=== PATIENT | female | born 1940 | race Caucasian/White ===

== ENCOUNTER 2017-01-09 13:27 | Emergency (ER) | payer MEDICARE, MEDICAID ==
[~2017-01-09] VITALS: Ht 159.4 cm; Wt 68.2 kg
[~2017-01-09 13:27] MED LIST: ASPI325T32 PO; CALC500T61 PO; MULT-36 PO; NITR50CA PO; OMEG1CAP5 PO; TROS20TA4 PO
[2017-01-09 13:44] VITALS: BP 153/69; PULSE 70; RESP 17; O2SAT 97
--- NOTE | 2017-01-09 14:16 | ED.REPORT ---
HPI-Headache Date of Service Jan 09, 2017 ED Provider: Brenda John MD Pt is a 76 year old female with a history of MS and HTN who presents to the ED complaining of non-radiating lancinating head pain onset 6 days ago. She denies any other symptoms. Pt reports that she was seen 4 days ago for similar symptoms at [facility] in [place], and was diagnosed with primary stabbing headache. She was prescribed Indomethacin and Ranitidine without relief. Per , the head pain episodes would occur every 3-4 minutes, lasting 10-15 seconds, but they have slowed down since the pt's arrival. She is not on medication for MS and she last saw a neurologist for her MS 34 years ago with plans to see one soon. They have an appointment with Dr. Esther Miller, neurologist. Nursing Notes Stated Complaint: HEADACHE Chief Complaint: Headache Nursing Notes Reviewed: Yes Allergies: Coded Allergies: Dust (Verified Allergy, Severe, Sneezing, 09/12/14) milk (Verified Allergy, Severe, Diarrhea, 09/12/14) Penicillins (Verified Allergy, Unknown, RASH,STAY AWAY FROM MEDS, 09/12/14) Scheduled Aspirin (Aspirin) 325 Mg Tablet 325 MG PO DAILY Calcium Carbonate (Calcium) 500 Mg Tablet 1 TAB PO DAILY Multivitamin (Daily Multiple Vitamin) 1 Each Tablet 1 EACH PO DAILY Nitrofurantoin Macrocrystal (Nitrofurantoin Macrocrystal) 50 Mg Capsule 50 MG PO BID Coulters-3 Fatty Acids/Fish Oil (Fish Oil 1,000 mg Capsule) 1 Each Capsule 1 EACH PO DAILY Trospium Chloride (Trospium Chloride) 20 Mg Tablet 20 MG PO BID ON EMPTY STOMACH Scheduled PRN Melatonin (Melatonin) 1 Mg Tablet 1 MG PO HS PRN PRN For Headache Prochlorperazine Maleate (Prochlorperazine) 10 Mg Tablet 10 MG PO Q6H PRN PRN Headache General Time Seen by MD: 14:13 Chief Complaint Other (Lancinating head pain) Hx Obtained From: Patient Arrived By: Walk-in Sudden in Onset?: No Onset Occurred: 6 days ago Symptom Duration: Intermittent Location: : Generalized Quality: Painful Severity: Current: Moderate Severity: Maximum: Moderate Recent Healthcare: Recent doctor visit, Recent hospitalization Similar Sx Previous: No Past Medical History Past Medical History Hx of breast cancer in 2010 Gout MS - diagnosed 193 Varicose veins Reports: Hypertension, Transient ischemic attack Past Surgical History Lumpectomy Hand 6x Reports: Appendectomy, Cholecystectomy, Hysterectomy, Tonsillectomy Smoking History Never Smoker Social History Alcohol Use: "Social" Drug Use: Denies drug use Other Social History: Ambulatory Status Independent Review of Systems Constitutional: Denies: Fever Neurologic: Reports: Headache Complete sys rev & neg: except as marked. Respiratory: Denies: Non-productive cough, Shortness of breath Physical Exam Initial Vital Signs Vital Signs (First) Date Time Temp Pulse Resp B/P Pulse Ox O2 Delivery O2 Flow Rate FiO2 01/09/17 13:44 36.5 70 17 153/69 97 Room Air Initial VS: Reviewed Interpretation & Diagnostics Interpretation & Diagnostics: MRI brain w/ and w/out contrast: IMPRESSION: 1. Increased T2 signal in the periventricular white matter may represent sequelae of the patient's known multiple sclerosis or chronic ischemic change. Findings at progressed since 2010. 2. Symmetric prominence of the ventricles is stable and likely represents ex vacuo dilatation caused by generalized cerebral and cerebellar atrophy. Dictated by: Edson Alonzo M.D. on 01/09/2017 at 16:58 Approved by: Edson Alonzo M.D. on 01/09/2017 at 17:04 Lab Results Interpretation Result Diagram: 01/09/17 1449 01/09/17 1449 Test 01/09/17 13:55 01/09/17 14:49 01/09/17 16:31 Hold Purple Top Tube Received (Received) Hold Blue Top Tube Received (Received) Hold Grassflat Top Tube Received (Received) Hold Patel Top Tube Received (Received) White Blood Count 3.3th/mm3 (3.8-10.1) Red Blood Count 3.99mil/mm3 (3.90-5.20) Hemoglobin 12.0g/dL (12.0-15.6) Hematocrit 36.4% (35.0-46.0) Mean Corpuscular Volume 91.2fL (81-100) Mean Corpuscular Hemoglobin 30.1pg (27.0-35.0) Mean Corpuscular Hemoglobin Concent 33.0% (32.0-37.0) Red Cell Distribution Width 13.9% (12.3-15.4) Platelet Count 179bil/L (150-400) Neutrophils (%) (Auto) 55.8% (40-74) Lymphocytes (%) (Auto) 32.9% (14-46) Monocytes (%) (Auto) 8.6% (4-12) Eosinophils (%) (Auto) 1.8% (0-5) Basophils (%) (Auto) 0.6% (0-3) Sodium Level 139mEq/L (134-144) Potassium Level 4.6mEq/L (3.5-5.2) Chloride Level 101mEq/L (97-108) Carbon Dioxide Level 24mmol/L (18-29) Blood Urea Nitrogen 32mg/dL (8-27) Creatinine 0.75mg/dL (0.57-1.00) Estimat Glomerular Filtration Rate 107mL/min (>59) Glucose Level 104mg/dL (60-99) Calcium Level 9.6mg/dL (8.5-10.1) Hold Urine Received (Received) Lab Results Interpretation: CBC normal CMP normal Re-Eval/Medical Decision Med Decision/Clinical Course This is a 76-year-old female initially greeted by Dr. Willams, however I personally interviewed and examined the patient. This is a patient reports many years of a history and diagnosis of MS, but has not required any medications and has not been followed by a neurologist. However the past week she has had atypical sharp stabbing headaches that are very brief in duration, then resolved and then reoccur. She was seen in urgent care [place] and had a noncontrast head CT was negative,, and was diagnosed with a particular syndrome-and treated with NSAIDs and ranitidine, but still having pain so came to the ED. She is working to establish with a local neurologist Esther Garvey, but her appointment is not until April. She has had no trauma, no fevers, no tearing, no clear neurologic symptoms beyond simple headache. The headache was particular severe today, but is now much better when I evaluate her. Clinically appears well, has normal cranial nerves, and no focal deficits. The patient's description of the headache is very atypical for more the concerning pathology. She started noncontrast head CT. The symptoms do not sound typical of a subarachnoid, meningitis or need for LP. With a history of MS, I contacted and discussed the case with neurology at [facility]-and they did recommend pursuing MRI imaging. This is negative for clear acute pathology, although some stigmata of prior MS was noted. Patient is reassured. Neurology also recommended considering melatonin for the stabbing-like headaches is there some information dictated my be helpful, unlikely be harmful. The patient feels okay at time of reevaluation and up-to-date. She is being discharged to continue indomethacin ranitidine, with the added melatonin, as well as some when necessary promethazine. Routine precautions reviewed. Patient's discharged in good condition. Source of Hx: Old records Re-Evaluation/Progress : Time of Eval: 18:45 Re-Evaluation/Progress Note: Pt rechecked by Dr. Alaniz. Informed pt of plan for treatment. Pt understands and agrees with plan for treatment. F/U instructions and RTER warnings given. All questions addressed. Differential Diagnosis: Positive: Headache, Negative: [employer] tumor, Carbon monoxide toxicity, Cerebrovascular accident, Dental infection, Encephalitis, Fever-induced, Headache, hypertensive, Headache , migraine, Headache, post LP, Headache, post-traumatic, Headache, tension, Hemorrhage, cerebellar, Hemorrhage, intracerebral, Hemorrhage, subarachnoid, Hemorrhage, subdural, Intracranial abscess, Meningitis, Post-traumatic/ concussion, Pseudotumor cerebri, TMJ syndrome, Temporal arteritis Counseled Regarding: Diagnosis, Lab results Discharge & Departure Shift Change Sign-Out Patient Care Transferred: Yes Discussed Complaint(s): Yes Laboratory Evaluation: Done, results pending Impression: Primary Impression: Headache Headache type: unspecified Headache chronicity pattern: unspecified pattern Intractability: not intractable Qualified Code: R51 - Headache Discharge Condition All VS Reviewed: Yes Condition: Stable Additional Instructions: 1. A dangerous cause of the headache was not identified. 2. Your MRI showed some mild scarring (probably from MS), but no acute process or complication. 3. Activities as tolerated. 4. You can try adding prochlorperazine 10mg up to every 6 hours as needed for headache (causes mild drowsiness, also helps with nausea) 5. Symptoms are expected to improve with time. 6. Follow up with your primary care provider. 7. I have talked with the neurologists at [facility] and they also indicate that you can try taking the [id number] melatonin at night as there are some reports that it can help stop these headaches as well. 8. I think it is OK for you to have a glass of wine in the evenings. Referrals: Freddy Ch MD (PCP) Care Transferred to: Dr. Alaniz Care Transferred at: 15:20 Scribe Attestation Portions of this note were transcribed by Yakelin Perez and Denilson Werner. I, Dr. John and Dr. Alaniz personally performed the history, physical exam and medical decision-making; I reviewed and confirmed the accuracy of the information in the transcribed note. Signed by: Yakelin Perez and Denilson Werner, Bob, 01/09/17 and 1845. copies to: Freddy Ch MD, Shawna L MD Jan 09, 2017 14:16 Yakelin Lovett Jan 09, 2017 14:24 Giuliano Alaniz MD Jan 09, 2017 15:50 DENILSON WERNER Jan 09, 2017 18:44
[2017-01-09 14:56] LABS: BASOPHILS % (AUTO) 0.6 % (0-3); EOSINOPHILS % (AUTO) 1.8 % (0-5); MONOCYTES % (AUTO) 8.6 % (4-12); Mean Corpuscular Hemoglobin 30.1 pg (27.0-35.0); Mean Corpuscular Volume 91.2 fL (81-100); NEUTROPHILS % (AUTO) 55.8 % (40-74); Platelet Count 179 bil/L (150-400)
[2017-01-09 16:19] VITALS: BP 147/64; PULSE 68; RESP 15; O2SAT 98
--- NOTE | 2017-01-09 17:06 | DRSVH ---
PROCEDURE: MRI BRAIN WITH AND WITHOUT CONTRAST ([id number]) INDICATIONS: Headaches,history of cancer and multiple sclerosis TECHNIQUE: Noncontrast axial T1 spin echo, axial T2 fast spin echo, sagittal and axial FLAIR, coronal T2 fast sp in echo, axial gradient echo, axial diffusion and ADC through the brain. After the administration of contrast, axial and coronal 3D VIBE or T1 spin echo with fat saturation through the brain. COMPARISON: [facility], MR, STROKE PROTOCOL (PN), 07/23/2010, 20:26. FINDINGS: Image quality: Excellent. CSF Spaces: Basal cisterns are patent. No extra-axial fluid collections. Ventricles are symmetrica lly enlarged most consistent with ex vacuo dilatation. Brain: No acute hemorrhage no masses, infarction, or midline shift. There is increased T2 signal in t he periventricular white matter progressed since 2010. No abnormal enhancement. Skull and face: Calvarial marrow is normal in signal. Orbits appear normal. Sinuses: Sinuses and mastoids appear clear. IMPRESSION: 1. Increased T2 signal in the periventricular white matter may represent sequelae of the patient's kn own multiple sclerosis or chronic ischemic change. Findings at progressed since 2010. 2. Symmetric prominence of the ventricles is stable and likely represents ex vacuo dilatation caused by generalized cerebral and cerebellar atrophy. Dictated by: Edson Alonzo M.D. on 01/09/2017 at 16:58 Approved by: Edson Alonzo M.D. on 01/09/2017 at 17:04
[2017-01-09] MEDS ORDERED: MELA1TAB9 PO (17:48)
[2017-01-09] MEDS ORDERED: PROC10TA PO (17:48)
[2017-01-09 18:04] VITALS: BP 146/77; PULSE 70; O2SAT 97
[2017-01-09 18:18] VITALS: BP 146/77; PULSE 70; RESP 15; O2SAT 97
== END 2017-01-09 18:19 | disposition home or self-care (01) ==
LOC: SED 13:27
DX: R51 Headache (principal); G35 Multiple sclerosis; I10 Essential (primary) hypertension; Z86.73 Personal history of transient ischemic attack (TIA), and cerebral infarction without residual deficits; Z79.82 Long term (current) use of aspirin; Z88.0 Allergy status to penicillin; Z91.011 Allergy to milk products; Z91.048 Other nonmedicinal substance allergy status
CPT/HCPCS: 36415; 70553; 80048; 85025; 99284; A9585; G0463; Q0164

== ENCOUNTER 2017-01-14 13:56 | Observation (INO) | payer MEDICARE, MEDICAID ==
[~2017-01-14] VITALS: Ht 157.5 cm; Wt 68.6 kg
[~2017-01-14 13:56] MED LIST changes: +MELA1TAB9 PO; +PROC10TA PO
[2017-01-14 14:01] VITALS: BP 123/48; PULSE 83; RESP 20; O2SAT 96
--- NOTE | 2017-01-14 14:47 | ED.REPORT ---
HPI-Extremity Problem Lower Date of Service Jan 14, 2017 ED Provider: Dr. Ced Jacob The patient is a 76 year old female w/ a hx of gout and HTN who presents to the ED c/o right knee pain onset today. Yesterday, she was completely pain free and able to walk to the bathroom and take out the garbage. Today, walking is extremely painful. She denies any fall, injury, or accident that could have caused symptoms. Her describes that even the weight of the blankets cause her extreme pain. She was seen at [facility] 3 days ago for headache. Nursing Notes Stated Complaint: SWOLLEN RIGHT KNEE,CAN'T WALK Chief Complaint: Extremity Trauma Nursing Notes Reviewed: Yes Allergies: Coded Allergies: Dust (Verified Allergy, Severe, Sneezing, 09/12/14) milk (Verified Allergy, Severe, Diarrhea, 09/12/14) Penicillins (Verified Allergy, Unknown, RASH,STAY AWAY FROM MEDS, 09/12/14) Scheduled Aspirin (Aspirin) 325 Mg Tablet 325 MG PO DAILY Calcium Carbonate (Calcium) 500 Mg Tablet 1 TAB PO DAILY Multivitamin (Daily Multiple Vitamin) 1 Each Tablet 1 EACH PO DAILY Nitrofurantoin Macrocrystal (Nitrofurantoin Macrocrystal) 50 Mg Capsule 50 MG PO BID Walker-3 Fatty Acids/Fish Oil (Fish Oil 1,000 mg Capsule) 1 Each Capsule 1 EACH PO DAILY Trospium Chloride (Trospium Chloride) 20 Mg Tablet 20 MG PO BID ON EMPTY STOMACH Scheduled PRN Melatonin (Melatonin) 1 Mg Tablet 1 MG PO HS PRN PRN For Headache Prochlorperazine Maleate (Prochlorperazine) 10 Mg Tablet 10 MG PO Q6H PRN PRN Headache General Time Seen by MD: 14:46 Chief Complaint Knee injury right Hx Obtained From: Patient Arrived By: Walk-in Onset Occurred: 1 - 4 hours ago Symptom Duration: Since onset Location: : Knee right Quality: Painful Severity: Current: Moderate Exacerbated by: Range of motion, Bending, Movement Recent Healthcare: Recent doctor visit Similar Sx Previous: Yes Past Medical History Past Medical History Hx of breast cancer in 2010 Gout MS - diagnosed 1930 Varicose veins Reports: Hypertension, Transient ischemic attack Past Surgical History Lumpectomy Hand 6x Reports: Appendectomy, Cholecystectomy, Hysterectomy, Tonsillectomy Smoking History Never Smoker Social History Alcohol Use: "Social" Drug Use: Denies drug use Other Social History: Ambulatory Status Independent Review of Systems Musculoskeletal: Reports: Joint pain (right knee), Joint swelling Neurologic: Reports: Problem walking, Denies: Change LOC, Confusion, Dizziness, Syncope Complete sys rev & neg: except as marked. Physical Exam Initial Vital Signs Vital Signs (First) Date Time Temp Pulse Resp B/P Pulse Ox O2 Delivery O2 Flow Rate FiO2 01/14/17 14:01 36.9 83 20 123/48 96 Room Air Initial VS: Reviewed Right Knee: Positive: Swelling present..., Tenderness present..., Warmth present Ankle / Foot: Atraumatic, Inspection NL, No deformity General/Constitutional: Awake, Alert, Cooperative Skin: Atraumatic, Color NL, No rash Neurologic: Oriented X3, Speech NL Head / Eyes: Atraumatic, Normocephalic, PERRL Neck: Atraumatic, Supple Back: Atraumatic, Inspection NL, Full range of motion Upper Extremity / MS: Atraumatic, Inspection NL, Full range of motion, No deformity Wrist / Hand: Atraumatic, Inspection NL, Full range of motion, No deformity Interpretation & Diagnostics Lab Results Interpretation Result Diagram: 01/14/17 1600 01/14/17 1600 Test 01/14/17 16:00 01/14/17 17:30 White Blood Count 3.8th/mm3 (3.8-10.1) Red Blood Count 4.08mil/mm3 (3.90-5.20) Hemoglobin 12.2g/dL (12.0-15.6) Hematocrit 36.9% (35.0-46.0) Mean Corpuscular Volume 90.4fL (81-100) Mean Corpuscular Hemoglobin 29.9pg (27.0-35.0) Mean Corpuscular Hemoglobin Concent 33.1% (32.0-37.0) Red Cell Distribution Width 14.3% (12.3-15.4) Platelet Count 170bil/L (150-400) Neutrophils (%) (Auto) 57.7% (40-74) Lymphocytes (%) (Auto) 29.8% (14-46) Monocytes (%) (Auto) 9.8% (4-12) Eosinophils (%) (Auto) 2.1% (0-5) Basophils (%) (Auto) 0.3% (0-3) Sodium Level 140mEq/L (134-144) Potassium Level 4.1mEq/L (3.5-5.2) Chloride Level 102mEq/L (97-108) Carbon Dioxide Level 23mmol/L (18-29) Blood Urea Nitrogen 27mg/dL (8-27) Creatinine 0.72mg/dL (0.57-1.00) Estimat Glomerular Filtration Rate 112mL/min (>59) Glucose Level 86mg/dL (60-99) Calcium Level 9.7mg/dL (8.5-10.1) Total Bilirubin 0.4mg/dL (0.0-1.2) Aspartate Amino Transf (AST/SGOT) 17U/L (0-50) Alanine Aminotransferase (ALT/SGPT) 12U/L (0-32) Alkaline Phosphatase 64U/L (25-165) Total Protein 7.3g/dL (6.4-8.4) Albumin 4.3g/dL (3.4-5.0) Hold Patel Top Tube Received (Received) Hold Urine Received (Received) X-Ray Interpretation Xray Interpretation: RIGHT KNEE X-RAY IMPRESSION: 1. 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 Elsewhere it is considered mild. 2. Chondrocalcinosis. 3. Question of intra-articular body 7 mm in size. Dictated by: Tung Parham M.D. on 01/14/2017 at 15:33 Approved by: Tung Parham M.D. on 01/14/2017 at 15:36 X-Ray Ordered: Knee right Interpretation / Wet Read by: Interpret - Radiologist Re-Eval/Medical Decision Med Decision/Clinical Course Patient cannot ambulate without severe pain. We will admit for observation. Believe the most likely diagnosis here is gouty arthritis. Consultation : Referral / Consult Name: Isreal Mejia MD Consulted With: Hospitalist Rubber Gasket Inspector Trimmer: Accepts admit Counseled Regarding: Diagnosis, Lab results, Need for admission Discharge & Departure Impression: Primary Impression: Knee pain Laterality: right Chronicity: acute Qualified Code: M25.561 - Pain in right knee Disposition: ADMITTED TO HOSPITAL (ERASED) Discharge Condition All VS Reviewed: Yes Condition: Stable Referrals: Freddy Ch MD (PCP) Scribe Attestation Portion of this note were transcribed by Tracie Weiner. I, Dr. Jacob, personally performed the history, physical exam, and medical decision-making: I reviewed and confirmed the accuracy for the information in the transcribed note. Signed by: cecilia Patel, 01/14/17 1600 copies to: Freddy Ch MD, Kirk H MD Jan 14, 2017 14:47 Tracie Weiner Jan 14, 2017 14:56
--- NOTE | 2017-01-14 15:37 | DRSVH ---
PROCEDURE: X-RAY RIGHT KNEE, THREE VIEWS ([id number]) INDICATIONS: knee pain TECHNIQUE: 3 views of the knee were acquired. COMPARISON: None. FINDINGS: Bones: No fractures or dislocations. There are marginal osteophytes and some spurring of the interc ondylar eminence. There is a calcification overlying the intercondylar eminence and femoral notch sug gesting an intra-articular body. Moderate osteoarthritic changes present in the medial patellofemoral joint space. Soft tissues: No joint effusion. Atherosclerotic calcifications are present in the superficial femor al artery and popliteal artery. Shadows of the soft tissues indicated varicose veins laterally latera l aspect of the distal thigh. IMPRESSION: 1. 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 Elsewhere it is c onsidered mild. 2. Chondrocalcinosis. 3. Question of intra-articular body 7 mm in size. Dictated by: Tung Parham M.D. on 01/14/2017 at 15:33 Approved by: Tung Parham M.D. on 01/14/2017 at 15:36
[2017-01-14 16:17] LABS: BASOPHILS % (AUTO) 0.3 % (0-3); EOSINOPHILS % (AUTO) 2.1 % (0-5); MONOCYTES % (AUTO) 9.8 % (4-12); Mean Corpuscular Hemoglobin 29.9 pg (27.0-35.0); Mean Corpuscular Volume 90.4 fL (81-100); NEUTROPHILS % (AUTO) 57.7 % (40-74); Platelet Count 170 bil/L (150-400)
[2017-01-14 16:33] VITALS: BP 138/84; PULSE 83; O2SAT 93
[2017-01-14] MEDS ORDERED: Ondansetron 2 mg/mL 2 mL Inj IVPUSH PRN ×2 (18:15→18:50)
[2017-01-14] MEDS ORDERED: Alum-Mag Hydrox-Simeth 30 mL Suspension PO PRN ×2 (18:15→18:50)
[2017-01-14] MEDS ORDERED: Polyethylene Glycol (PEG) 17 Gm Powder PO PRN (18:15)
[2017-01-14] MEDS ORDERED: 0.9% Sodium Chloride 1,000 ML IV SCH (18:15)
[2017-01-14 19:06] VITALS: BP 138/84; PULSE 83; RESP 20; O2SAT 93
[2017-01-14 19:15] VITALS: BP 150/79; PULSE 68; RESP 18; O2SAT 96
[2017-01-14] MEDS ORDERED: INDO25CA PO (19:50)
[2017-01-14 19:57] LABS: INR 0.95 ratio
[2017-01-14 20:05] LABS: Magnesium 2.1 mg/dL (1.6-2.6)
[2017-01-14] MEDS ORDERED: RANI150C4 PO (20:16)
[2017-01-14] MEDS ORDERED: ASPI-973 PO (20:17)
[2017-01-14] MEDS: Heparin 5,000 Unit/mL Inj SUBQ SCH (20:40)
--- NOTE | 2017-01-14 21:48 | PCM.HPMED ---
Subjective Date of Service Jan 14, 2017 Primary Provider: Admitting Physician: Isreal Mejia MD Primary Care Physician: Freddy Ch MD Attending Physician: Isreal Mejia MD Chief Complaint: Pain and swelling in the right knee and inability to walk History of Present Illness: The patient is a pleasant 76-year-old white female who suffered from multiple sclerosis for many years as it was diagnosed in 1976. Patient also has apparent history of gout and hypertension who has been having shooting or stabbing crescendo type pains that radiate from the body to her head they come to a crescendo Corona frequency and then stop for 5 hours at a time. Patient went to the emergency room and was prescribed indomethacin for these pains. The patient was also apparently given nitrofurantoin 1 capsule by mouth twice a day 50 mg the patient was given her usual state of health until the acute onset of pain and swelling in her right knee with inability to walk. Her called EMS services who recommended that they drive to the [facility] [place] to get off work [facility]. And assisted the patient's into getting her in his car. [place] he drove to [facility] emergency room where patient was evaluated by Dr. Ced Jacob. Dr. Jacob diagnosed patient with gout and prescribed colchicine and as the patient could still not walk due to pain and swelling the patient was brought in under observation to the hospital service for further evaluation and treatment. The patient's was agreeable with this and would find a hotel room to stay in overnight. Review of Systems: General: Patient has had no fever, chills or diaphoresis. Patient has no nausea or vomiting. The patient's Carlos states that patient has had cellulitis at least 5 times and every time her temperature is at least 102F. Carlos states that the patient has had no such fever this time. HEENT: Patient has no headache, patient has no diplopia, patient has no changes in vision. She wears glasses for reading only after having cataract surgery. Patient has no problems with their ears(other than being hard of hearing), nose or throat. Patient has no known dental problems. Patient has no pharyngitis or history of thrush. Neck: Patient has no stiffness in the neck. Patient has no lymphadenopathy. Patient has no other problems with their neck. Pulmonary: Patient has no shortness of breath, no cough, no expectoration of sputum. Patient has no pleurisy. Patient has no chest pain. Patient has no history of asthma or COPD. Cardiovascular: Patient has no chest pain. Patient has no history of heart murmur. Patient has no palpitations. Patient has no history of myocardial infarction. Patient has no history of coronary artery disease. Gastrointestinal: Patient has no history of hepatitis A, B or C. Patient has no history of peptic ulcer disease. Patient has no history of gastroesophageal reflux disease. Patient has no history of nausea, vomiting, or diarrhea. Patient has no history of hematemesis, hematochezia, or melena. Patient has no history of colitis. Renal: Patient has no history of kidney disease. No history of kidney stones. Genitourinary: Patient has no history of dysuria or frequency. However, due to the MS patient does have incontinence. Patient has no previous history of genitourinary problems. Musculoskeletal: Patient has no history of previous muscular skeletal problems. However, now she has pain and swelling in her right knee. Her does think that she may have had gout in the past Neurologic: The patient was diagnosed with multiple sclerosis in 1976. The patient's Carlos states the patient does suffer from some dementia. Patient has no history of stroke, no history of seizure. Patient does have a history of a TIA. Psychiatric: Patient has no history of psychiatric problems. The remainder of the entire review of systems was reviewed with patient and is as mentioned above otherwise negative. Allergies Coded Allergies: Dust (Verified Allergy, Severe, Sneezing, 09/12/14) milk (Verified Allergy, Severe, Diarrhea, 09/12/14) Penicillins (Verified Allergy, Unknown, RASH,STAY AWAY FROM MEDS, 09/12/14) Home Medications Scheduled Aspirin (Aspirin) 325 Mg Tablet 325 MG PO DAILY Calcium Carbonate (Calcium) 500 Mg Tablet 1 TAB PO DAILY Multivitamin (Daily Multiple Vitamin) 1 Each Tablet 1 EACH PO DAILY Nitrofurantoin Macrocrystal (Nitrofurantoin Macrocrystal) 50 Mg Capsule 50 MG PO BID Chokio-3 Fatty Acids/Fish Oil (Fish Oil 1,000 mg Capsule) 1 Each Capsule 1 EACH PO DAILY Trospium Chloride (Trospium Chloride) 20 Mg Tablet 20 MG PO BID ON EMPTY STOMACH Scheduled PRN Melatonin (Melatonin) 1 Mg Tablet 1 MG PO HS PRN PRN For Headache Prochlorperazine Maleate (Prochlorperazine) 10 Mg Tablet 10 MG PO Q6H PRN PRN Headache PMH Hx of breast cancer in 2010. Status post lumpectomy by Dr. Jonathan Lomas followed by radiation therapy, and chemotherapy under the direction of Dr. Daily. Gout MS - diagnosed 1976 Varicose veins The patient and her Carlos states that the patient has never had Hypertension Transient ischemic attack Surgical History Lumpectomy of a right breast by Dr. Jonathan Lomas. Patient has had 6 hand surgeries 2 of which were for cyst on her fingers and she has had bone grafting. The patient denies ever having an appendectomy She has had a cholecystectomy She has had a hysterectomy She has had a tonsillectomy Family History Patient's mother at the age of 95 from comp cases of Alzheimer's dementia. Patient's father at 71 of complications of alcoholism. Patient's brother at the age of 12 from a bowel obstruction. Patient had no sisters. Social History Hx Alcohol Use: Yes ("10-15 oz of wine a week") Hx Substance Use: No Hx Tobacco Use: No Smoking Status: Never Smoker Living Arrangement: with Family (She has lived on [address] for 22 years.) Spiritual Support Patient often sang solo in the choir at [employer]. Exam Vital Signs Vital Sign - Last Date Time Temp Pulse Resp B/P Pulse Ox O2 Delivery O2 Flow Rate FiO2 01/14/17 19:15 36.9 68 18 150/79 96 Room Air Exam General: The patient is lying supine in no apparent distress. HEENT: Head is atraumatic and normocephalic. Eyes: Pupils are equally round and reactive to light and accommodation. Extraocular muscles are intact. Sclera are white, anicteric. Subconjunctival mucosa is pink. Ears and nose are unremarkable. Oropharynx: There is no mucosal lesions, there is no thrush, there is no pharyngitis. Neck: Is supple, there are no nodes, or masses or tenderness. Chest: Is clear to auscultation and percussion. There are no rales, rhonchi, wheezes or rubs. Heart: Rate, rhythm is regular. There is a grade 2/6 systolic ejection murmur heard best at the left sternal border. There is no rub or gallop. Abdomen: Good bowel sounds are present. Abdomen is soft, nontender, no organomegaly or masses were appreciated. Extremities: Are symmetrical and well perfused. There is no edema, there is no cellulitis, no rash. Neurologic: There are no focal neurological deficits. Cranial nerves II through XII are intact. There are no sensory or motor deficits. Psychiatric: Patients mood is calm and shows no sign of agitation. Genital: Deferred Rectal: Deferred Lab and Diagnostics Result Diagram: 01/14/17 1600 01/14/17 1600 X-Rays, CTs and MRIs PROCEDURE: X-RAY RIGHT KNEE, THREE VIEWS ([id number]) INDICATIONS: knee pain TECHNIQUE: 3 views of the knee were acquired. COMPARISON: None. FINDINGS: Bones: No fractures or dislocations. There are marginal osteophytes and some spurring of the intercondylar eminence. There is a calcification overlying the intercondylar eminence and femoral notch suggesting an intra-articular body. Moderate osteoarthritic changes present in the medial patellofemoral joint space. Soft tissues: No joint effusion. Atherosclerotic calcifications are present in the superficial femoral artery and popliteal artery. Shadows of the soft tissues indicated varicose veins laterally lateral aspect of the distal thigh. IMPRESSION: 1. 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 Elsewhere it is considered mild. 2. Chondrocalcinosis. 3. Question of intra-articular body 7 mm in size. Dictated by: Tung Parham M.D. on 01/14/2017 at 15:33 Approved by: Tung Parham M.D. on 01/14/2017 at 15:36 Assessment & Plan The patient is a pleasant 76-year-old white female who suffered from multiple sclerosis for many years as it was diagnosed in 1976. Patient also has apparent history of gout and hypertension who has been having shooting or stabbing crescendo type pains that radiate from the body to her head they come to a crescendo Corona frequency and then stop for 5 hours at a time. Patient went to the emergency room and was prescribed indomethacin for these pains. The patient was also apparently given nitrofurantoin 1 capsule by mouth twice a day 50 mg the patient was given her usual state of health until the acute onset of pain and swelling in her right knee with inability to walk. Her called EMS services who recommended that they drive to the [address] to get off work [facility]. And assisted the patient's into getting her in his car. [place] and then he drove to [facility] emergency room where patient was evaluated by Dr. Ced Jacob. Dr. Jacob diagnosed patient with gout and prescribed colchicine and as the patient could still not walk due to pain and swelling the patient was brought in under observation to the hospital service for further evaluation and treatment. The patient's was agreeable with this and would find a hotel room to stay in overnight. # Acute pain and inflammation in the right knee, present at the time of admission. Active and ongoing - Possible gouty arthritis. Will check serum uric acid. Colchicine was started and will continue with another 0.6 mg dose this evening and then daily. - Possible progressive osteoarthritis with acute exacerbation. - There is no evidence of infection as there is no evidence of joint rubor or calor and the patient has no fever or leukocytosis. The patient's Carlos states that she routinely has a temperature of 102 with any infection. - We will consult physical therapy. - We will consider orthopedic surgery consultation if patient does not exhibit any improvement. # Multiple sclerosis, presents of admission. Active - Continue supportive care - Physical therapy consultation # History of breast cancer in 2010 - Treated by lumpectomy, radiation therapy and chemotherapy Disposition: Patient will be brought in under observation and is expected to be discharged home tomorrow and let us know improvement with current therapy and physical therapy. . Pain Evaluation: Adequate Pain Control GI Prophylaxis: Not indicated VTE Prophylaxis: Sub-Q Heparin (Unfractionated) Resuscitation Status: CPR: Attempt Resuscitation Isreal Mejia MD Jan 14, 2017 21:48
--- NOTE | 2017-01-14 21:58 | NUR ---
Admit Received report from day shift MOC RN. Pt arrived to room 250-1 approximately at 1910 via stretcher and spouse at bedside. pharmacy technician per diem and this RN transferred pt to bed. A&Ox3. pt on RA with sat 96%. BP 150/79, afebrile. admission and med rec. done by this RN. home medication sent home by spouse. right wrist peripheral IV started in the floor. IVF NS running at 50ml/hr. oriented pt to room and call light use. call light within reach. will continue to monitor and provide care.
[2017-01-14 23:32] LABS: APPEARANCE,URINE CLEAR (CLEAR,HAZY); COLOR,URINE YELLOW (YELLOW); OCCULT BLOOD,URINE TRACE (NEGATIVE); UROBILINOGEN,URINE NORMAL (NORMAL)
[2017-01-15 00:32] VITALS: BP 154/70; PULSE 70; RESP 16; O2SAT 96
[2017-01-15] MEDS: Heparin 5,000 Unit/mL Inj SUBQ SCH ×2 (02:48→08:36)
--- NOTE | 2017-01-15 05:33 | NUR ---
Activity pt denied pain since admitted to the floor, but she doesn't want to get OOB during this shift. pt self cath x2 and also incontinent of urine x2. will continue to monitor.
[2017-01-15 06:01] VITALS: BP 129/69; PULSE 70; RESP 16; O2SAT 96
[2017-01-15] MEDS ORDERED: MULT1CAP33 PO (07:26)
[2017-01-15] MEDS ORDERED: OMEG1CAP56 PO (07:26)
[2017-01-15] MEDS ORDERED: CALC500T9 PO (07:27)
[2017-01-15] MEDS ORDERED: Omega-3 Fatty Acids 1,000 mg Capsule PO SCH (08:00)
[2017-01-15] MEDS ORDERED: Tolterodine ER 2 mg ER24 Capsule PO SCH (08:30)
[2017-01-15] MEDS ORDERED: Calcium Carbonate (Oyster Shell) 500 mg Tablet PO SCH (08:30)
[2017-01-15 10:10] LABS: BASOPHILS % (AUTO) 0.3 % (0-3); EOSINOPHILS % (AUTO) 2.4 % (0-5); MONOCYTES % (AUTO) 10.5 % (4-12); Mean Corpuscular Hemoglobin 29.7 pg (27.0-35.0); Mean Corpuscular Volume 90.6 fL (81-100); NEUTROPHILS % (AUTO) 48.5 % (40-74); Platelet Count 185 bil/L (150-400)
[2017-01-15 10:59] LABS: ERYTHROCYTE SEDIMENTATION RATE 21 mm/hr (0-40)
[2017-01-15 11:44] VITALS: BP 122/66; PULSE 71; RESP 16; O2SAT 97
[2017-01-15 11:45] LABS: Magnesium 1.9 mg/dL (1.6-2.6)
--- NOTE | 2017-01-15 11:51 | NUR ---
GUERRERO explained and signed. Copy of MASTERS given to pt.
--- NOTE | 2017-01-15 12:06 | DRSVH ---
[facility] [address] [place] [address] Echocardiogram Report Name: PRANAY SHARIF BStudy Date: 01/15/2017 Height: 62 in Hospital Exam Location: [facility] Weight: 151 lb Gender: Female BSA: 1.7 m2 : 1940 Age: 76 yrs BP: 129/69 mmHg Reason For Study: [place] Ordering Physician: Theodore Bushist Performed By: Garrison Giraldo Referring Physician: Dr. Magda Ch Interpretation Summary 1. Normal left ventricular size, wall thickness and systolic function with an estimated EF of 55 to 60% 2. Normal right ventricular size and systolic function. 3. No valvular pathology appreciated. There is no old study for comparison Procedure: A two-dimensional transthoracic echocardiogram with color flow and Doppler was performed. The study quality was technically good. Comparison is made with the echocardiogram of 08/09/12. The patient was in normal sinus rhythm during the exam. Left Ventricle: The left ventricle is normal in size. There is normal left ventricular wall thickness. The ejection fraction is estimated to be 55-60%. There are no focal wall motion abnormalities. Right Ventricle: The right ventricle is normal in size and function. Atria: Both atria are normal in size. The interatrial septum is intact with no evidence for an atrial septal defect. Mitral Valve: The mitral valve is normal in structure and function. There is trace mitral regurgitation. Aortic Valve: The aortic valve is trileaflet. The aortic valve opens well. No aortic regurgitation is present. Tricuspid Valve: The tricuspid valve is normal in structure and function. There is trace tricuspid regurgitation. The right ventricular systolic pressure is estimated at 24 mmHg assuming a right atrial pressure of 3 mm Hg. Pulmonic Valve: The pulmonic valve is not well visualized. There is trace pulmonic regurgitation. Great Vessels: The aortic root is normal size. The dimensions of the ascending aorta are normal. The pulmonary artery is normal size. The IVC is of normal diameter and collapses greater than 50% with a sniff. This suggests a low right atrial pressure of 3 mm Hg. Pericardium/ Pleura There is no pericardial effusion. There is no pleural effusion. MMode/2D Measurements & Calculations LVIDd: 4.3 cm LA dimension: 3.5 cm RA long axis LVOT diam LVIDs: 3.1 cm FS: 28.6 % LA A2 area: 16.8 cm RA area Ao root diam EPSS: 0.90 cm LA A4 area: 18.4 cm IVSd: 0.89 cm LA length (vol): 5.5 cm : 16.0 cm Aortic Jxn LVPWd: 0.93 cm LA vol: 48.1 ml RA vol: 45.0 ml LA vol index RA asc Aorta : 26.5 mm2 Diam: 3.3 cm IVC diam: 0.76 cm LV melgar. diameter/BSA LV sys. diameter/BSA (cm/m^2): 2.5 (cm/m^2): 1.8 Doppler Measurements & Calculations Ao V2 max MV E max venkatesh MV E/A: 0.90 TR max venkatesh : 154.0 cm/sec : 59.0 cm/sec Med Peak E' Venkatesh : 229.7 cm/sec Ao max P.5 mmHg MV A max venkatesh TR max PG Ao mean P.2 mmHg : 65.8 cm/sec E/E' med: 12.9 : 21.1 mmHg LVOT Max Venkatesh MV P1/2t PA V2 max : 83.7 cm/sec : 42.0 msec : 68.0 cm/sec PA mean PG LIEN(I,D): 1.8 cm : 0.99 mmHg sev ratio: 0.51 PA Accel Time : 0.10 sec MV P1/2t max venkatesh Ao V2 mean LV V1 max PG PA V2 mean : 109.0 cm/sec : 46.6 cm/sec Ao V2 VTI: 37.5 cmLV V1 VTI: 19.2 cm MVA(P1/2t): 5.2 cm2 LIEN(V,D): 1.9 cm2 LIEN indexed to BSA (cm^2/m^2): 1.0 Reading Physician:12:05 PM
--- NOTE | 2017-01-15 12:10 | NUR ---
Ambulation/ Pain has decreased significantly, pt has been up ambulating w/ PT, as well as up BRP frequently. Still reports some knee pain w/ ambulation but tolerable. Pt had difficulty w/ straight cath earlier today, and has been up 6 times BRP, sometimes for BM, other for some urine, but is usually incontinent and requiring brief changes each time.
--- NOTE | 2017-01-15 12:14 | NUR ---
Social Work: Initial Assessment/ Multidisciplinary Rounds D: Per EMR review, pt is a 76 year old female admitted for acute arthritis, Right Knee Pain. Pt is [employer] with Medicare and [facility] supplement; pt has no LTC insurance or VA benefits. PCP is Freddy Ch MD. NOK is Bernard Conte, spouse, . Advanced directives completed- requested copy for chart. No RA Score entered at this time. SAMPLE COORDINATOR met with the pt at bedside. Sw role explained, contact information and discharge planning checklist provided. Pt lives on [facility] with her spouse. Pt uses a cane for ambulation and owns a walker but does not require the use of it. Pt is I with ADLs and self-care, pt does not drive and relies on her spouse for transport. Pt has never had HH but had a stay at [facility] in the past. Pt expresses hope to go home when ready and states that she may require a priority boarding pass. SAMPLE COORDINATOR acknowledges this and will inform MD on day of discharge. Pt states her spouse will transport. Pt is receptive to discharge planning and return visits from SAMPLE COORDINATOR. A: Pt who is I at baseline and lives with her spouse. P: Evolving; SAMPLE COORDINATOR to continue to follow to assess for discharge needs. Pt will likely discharge home via POV. Pt [place] and may require HH for discharge. DANIE Savage Addendum: 01/15/17 at 1221 by GIAN CEDENO Amended: Links added.
--- NOTE | 2017-01-15 13:09 | CONS ---
[address] [address] CONSULTATION REPORT PATIENT: PRANAY SHARIF : 1940 MR#: [id number] ADMIT: 01/14/2017 JOB ID: [id number] DATE OF SERVICE: 01/15/2017 CHIEF COMPLAINT: Right knee pain. HISTORY OF PRESENT ILLNESS: This is a pleasant, 76-year-old female that presented to the hospital yesterday with right knee swelling and pain. She denies any trauma or change in activity at the onset of her symptoms. She states that her knee swelled significantly and she was unable to place any weight onto the leg. She normally utilizes a cane and was unable to ambulate despite the cane. Her was able to transport her here to the hospital, where she was evaluated and admitted for further observation. She was started on colchicine in the emergency department as they thought this was secondary to gout. She currently states that the swelling has gone down significantly since her hospitalization. She has more motion to the knee and has been able to put some weight while utilizing a walker. She denies any constitutional symptoms including any fevers, sweats, or chills. The majority of the pain she describes is with motion to the knee. She has some pain to the lateral and posterior joint line. PAST MEDICAL HISTORY: Multiple sclerosis, gout, hypertension, breast cancer. PAST SURGICAL HISTORY: Lumpectomy, multiple hand surgeries. Cholecystectomy, hysterectomy, tonsillectomy, adenoidectomy. FAMILY HISTORY: Noncontributory. SOCIAL HISTORY: Patient drinks occasional wine. Denies any tobacco or illicit drug use. She currently lives with her on [facility]. MEDICATIONS: Please see electronic medical record for full list of patient's medications. ALLERGIES: PENICILLIN. REVIEW OF SYSTEMS: The patient denies any fevers, sweats, chills, chest pain, shortness of breath, nausea, vomiting, diarrhea. Complains mainly of right knee pain and swelling as described in history of present illness. PHYSICAL EXAMINATION: General: The patient is alert, no apparent distress. HEENT: Normocephalic, atraumatic. Extraocular movements intact. Nares patent. Lungs: No wheezes or signs of respiratory distress. Neuro: Cranial nerves 2-12 are intact. Extremities: On gross observation of the patient's right knee, there are no open wounds, abrasions, or ecchymosis. Very minimal swelling. No palpable effusion, no warmth to the right knee compared to the contralateral knee. Range of motion of the knee consistent in extension to flexion arc of 10-100 degrees. She has some mild pain to the posterior lateral joint line as well as the medial joint line. Knee is stable with anterior-posterior drawer test, Carol's, as well as varus and valgus stress test. There is pain both with medial and lateral Reynold's. There are palpable dorsalis pedis and posterior tib pulses and complete intact sensation of the right lower extremity. She is able to fully dorsiflex and plantar flex the ankle and toes without difficulty. DIAGNOSTIC STUDIES: The patient's white count upon admission was 3.8, and today it was also within normal limits at 2.9. ESR is normal at 21 and CRP also normal at 0.01. Three views of the right knee were obtained in the emergency department demonstrating tricompartmental osteoarthritis with significant arthritis to the patellofemoral and medial compartments. It was noted on the radiology report that there was a possible loose body within the lateral compartment, but upon my read of the x-rays, this represents the fabella which is appreciated also on the lateral view which is simply a sesamoid. There is also chondrocalcinosis within the joint. IMPRESSION: Right knee exacerbation of osteoarthritis with possible underlying gout. PLAN: The patient has been improving with conservative treatment. Her inflammatory markers are not elevated. She has a normal white count. Her motion and swelling have improved significantly over the evening and I feel she can continue with conservative measures. She can be weightbearing as tolerated and with her walker or her cane. She should work with Physical Therapy. I recommend her being discharged on an anti-inflammatory such as indomethacin or Naprosyn and she can follow up on an outpatient setting in 2-4 weeks. If she is still symptomatic we can discuss steroid injection in the future.
--- NOTE | 2017-01-15 14:55 | PCM.DIMED ---
Discharge Instructions Date of Service Jan 15, 2017 Dates of Hospitalization Jan 14, 2017 at 18:02 Discharge Diagnosis Discharge Diagnosis Acute Gout of Right Knee Diet Discharge Diet: No restrictions (The patient may resume her usual diet gradually as tolerated.) Activity Discharge Activity: No restrictions (The patient may resume her usual activities gradually as tolerated.) Call your provider Call your provider for: Fever or Chills, Shortness of breath, Bleeding, Chest pain, Vomitting, Excessive diarrhea, Weakness (unilateral) Patient Instructions Follow-up Provider: Freddy Ch MD Follow-up with PCP in: 1 week Isreal Mejia MD Jan 15, 2017 14:55
[2017-01-15] MEDS ORDERED: COLC0.6T52 PO (15:03)
--- NOTE | 2017-01-15 16:12 | NUR ---
Discharge Pt d/c w/ family at 1555 via w/c. Time taken to go over d/c instructions w/ patient and spouse. Pt will continue colchicine and f/u w/ pcp this week. Pt and spouse felt very comfortable with d/c plan and left with no concerns. It was a pleasure to have her as a patient here.
--- NOTE | 2017-01-16 00:07 | PCM.DC.MED ---
Discharge Summary Date of Service Jan 15, 2017 Dates of Hospitalization Date of Hospital Admission Jan 14, 2017 at 18:02 Date of Discharge: Jan 15, 2017 Providers: Admitting Physician: Isreal Mejia MD Primary Care Physician: Freddy Ch MD Attending Physician: Isreal Mejia MD Diagnosis at Time of Discharge Diagnosis at Time of Discharge Acute Gout of Right Knee Procedures XRay, CTs & MRIs PROCEDURE: X-RAY RIGHT KNEE, THREE VIEWS ([id number]) INDICATIONS: knee pain TECHNIQUE: 3 views of the knee were acquired. COMPARISON: None. FINDINGS: Bones: No fractures or dislocations. There are marginal osteophytes and some spurring of the intercondylar eminence. There is a calcification overlying the intercondylar eminence and femoral notch suggesting an intra-articular body. Moderate osteoarthritic changes present in the medial patellofemoral joint space. Soft tissues: No joint effusion. Atherosclerotic calcifications are present in the superficial femoral artery and popliteal artery. Shadows of the soft tissues indicated varicose veins laterally lateral aspect of the distal thigh. IMPRESSION: 1. 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 Elsewhere it is considered mild. 2. Chondrocalcinosis. 3. Question of intra-articular body 7 mm in size. Dictated by: Tung Parham M.D. on 01/14/2017 at 15:33 Approved by: Tung Parham M.D. on 01/14/2017 at 15:36 Brief History The patient is a pleasant 76-year-old white female who suffered from multiple sclerosis for many years as it was diagnosed in 1976. Patient also has apparent history of gout and hypertension who has been having shooting or stabbing crescendo type pains that radiate from the body to her head they come to a crescendo Evans frequency and then stop for 5 hours at a time. Patient went to the emergency room and was prescribed indomethacin for these pains. The patient was also apparently given nitrofurantoin 1 capsule by mouth twice a day 50 mg the patient was given her usual state of health until the acute onset of pain and swelling in her right knee with inability to walk. Her called EMS services who recommended that they drive to the [address] [place] [address] to get off work [facility] to the [facility]. And assisted the patient's into getting her in his car. [place] he drove to [facility] emergency room where patient was evaluated by Dr. Ced Jacob. Dr. Jacob diagnosed patient with gout and prescribed colchicine and as the patient could still not walk due to pain and swelling the patient was brought in under observation to the hospital service for further evaluation and treatment. The patient's was agreeable with this and would find a hotel room to stay in overnight. Hospital Course The patient is a pleasant 76-year-old white female who suffered from multiple sclerosis for many years as it was diagnosed in 1976. Patient also has apparent history of gout and hypertension who has been having shooting or stabbing crescendo type pains that radiate from the body to her head they come to a [employer] Evans frequency and then stop for 5 hours at a time. Patient went to the emergency room and was prescribed indomethacin for these pains. The patient was also apparently given nitrofurantoin 1 capsule by mouth twice a day 50 mg the patient was given her usual state of health until the acute onset of pain and swelling in her right knee with inability to walk. Her called EMS services who recommended that they drive to the [address] [place] [address] to get off work [facility] to the [facility]. And assisted the patient's into getting her in his car. [place] and then he drove to [facility] emergency room where patient was evaluated by Dr. Ced Jacob. Dr. Jacob diagnosed patient with gout and prescribed colchicine and as the patient could still not walk due to pain and swelling the patient was brought in under observation to the hospital service for further evaluation and treatment. The patient's was agreeable with this and would find a hotel room to stay in overnight. # Acute pain and inflammation in the right knee, present at the time of admission. Active and ongoing - Possible gouty arthritis. Will check serum uric acid. Colchicine was started and will continue with another 0.6 mg dose this evening and then daily. - Possible progressive osteoarthritis with acute exacerbation. - There is no evidence of infection as there is no evidence of joint rubor or calor and the patient has no fever or leukocytosis. The patient's Carlos states that she routinely has a temperature of 102 with any infection. - We will consult physical therapy. - We have obtained an orthopedic surgery consultation with Dr. Sriram Jurado and appreciate his time and expertise. He recommended the following: "The patient has been improving with conservative treatment. Her inflammatory markers are not elevated. She has a normal white count. Her motion and swelling have improved significantly over the evening and I feel she can continue with conservative measures. She can be weightbearing as tolerated and with her walker or her cane. She should work with Physical Therapy. I recommend her being discharged on an anti-inflammatory such as indomethacin or Naprosyn and she can follow up on an outpatient setting in 2-4 weeks. If she is still symptomatic we can discuss steroid injection in the future." # Multiple sclerosis, presents of admission. Active - Continue supportive care - Physical therapy consultation # History of breast cancer in 2010 - Treated by lumpectomy, radiation therapy and chemotherapy Disposition: Patient has improved significantly on colchicine therapy alone and will be discharged home today.. . Exam Vital Signs (Last) Date Time Temp Pulse Resp B/P Pulse Ox O2 Delivery O2 Flow Rate FiO2 01/15/17 11:44 36.9 71 16 122/66 97 Room Air Exam General: The patient is lying supine in no apparent distress. HEENT: Head is atraumatic and normocephalic. Eyes: Pupils are equally round and reactive to light and accommodation. Extraocular muscles are intact. Sclera are white, anicteric. Subconjunctival mucosa is pink. Ears and nose are unremarkable. Oropharynx: There is no mucosal lesions, there is no thrush, there is no pharyngitis. Neck: Is supple, there are no nodes, or masses or tenderness. Chest: Is clear to auscultation and percussion. There are no rales, rhonchi, wheezes or rubs. Heart: Rate, rhythm is regular. There is a grade 2/6 systolic ejection murmur heard best at the left sternal border. There is no rub or gallop. Abdomen: Good bowel sounds are present. Abdomen is soft, nontender, no organomegaly or masses were appreciated. Extremities: Are symmetrical and well perfused. There is no edema, there is no cellulitis, no rash. The right knee is tender in some spots however there is no calor or rubor. Neurologic: There are no focal neurological deficits. Cranial nerves II through XII are intact. There are no sensory or motor deficits. Psychiatric: Patients mood is calm and shows no sign of agitation. Genital: Deferred Rectal: Deferred Test 01/14/17 16:00 01/14/17 17:30 01/15/17 09:50 Prothrombin Time 10.2sec (8.1-12.5) Prothromb Time International Ratio 0.95ratio Hold Patel Top Tube Received (Received) Urine Color Yellow (YELLOW) Urine Appearance Clear (CLEAR,HAZY) Urine pH 6.0 (5.0-8.0) Urine Specific [place] 1.025 (1.003-1.035) Urine Protein Negativemg/dL (NEG,TRACE) Urine Glucose (UA) Negativemg/dL (NEGATIVE) Urine Ketones Tracemg/dL (NEGATIVE) Urine Occult Blood Trace (NEGATIVE) Urine Nitrite Positive (NEGATIVE) Urine Bilirubin Negative (NEGATIVE) Urine Urobilinogen Normalmg/dL (NORMAL) Urine Leukocyte Esterase Small (NEGATIVE) Urine RBC 0-2/hpf (0-2) Urine WBC >50/hpf (0-5) Urine Epithelial Cells Few/hpf (NONE-MOD) Urine Crystals None seen (NONE SEEN) Urine Bacteria Many/hpf (NONE-FEW) Urine Hyaline Casts None/lpf (NONE) Urine Granular Casts None seen (NONE SEEN) Urine Waxy Casts None seen (NONE SEEN) Urine Red Blood Cell Casts None seen (NONE SEEN) Urine White Blood Cell Casts None seen (NONE SEEN) Urine Mucus None seen (None Seen) Urine Trichomonas None seen (NONE SEEN) Urine Yeast None (NONE SEEN) Urinalysis Comment None Urine Culture Reflexed Indicated Hold Urine Received (Received) White Blood Count 2.9th/mm3 (3.8-10.1) Red Blood Count 4.37mil/mm3 (3.90-5.20) Hemoglobin 13.0g/dL (12.0-15.6) Hematocrit 39.6% (35.0-46.0) Mean Corpuscular Volume 90.6fL (81-100) Mean Corpuscular Hemoglobin 29.7pg (27.0-35.0) Mean Corpuscular Hemoglobin Concent 32.8% (32.0-37.0) Red Cell Distribution Width 14.2% (12.3-15.4) Platelet Count 185bil/L (150-400) Neutrophils (%) (Auto) 48.5% (40-74) Lymphocytes (%) (Auto) 38.0% (14-46) Monocytes (%) (Auto) 10.5% (4-12) Eosinophils (%) (Auto) 2.4% (0-5) Basophils (%) (Auto) 0.3% (0-3) Erythrocyte Sedimentation Rate 21mm/hr (0-40) Sodium Level 141mEq/L (134-144) Potassium Level 4.2mEq/L (3.5-5.2) Chloride Level 103mEq/L (97-108) Carbon Dioxide Level 24mmol/L (18-29) Blood Urea Nitrogen 25mg/dL (8-27) Creatinine 0.75mg/dL (0.57-1.00) Estimat Glomerular Filtration Rate 107mL/min (>59) Glucose Level 98mg/dL (60-99) Uric Acid 5.2mg/dL (2.6-7.2) Calcium Level 9.5mg/dL (8.5-10.1) Magnesium Level 1.9mg/dL (1.6-2.6) Total Bilirubin 0.5mg/dL (0.0-1.2) Aspartate Amino Transf (AST/SGOT) 20U/L (0-50) Alanine Aminotransferase (ALT/SGPT) 13U/L (0-32) Alkaline Phosphatase 67U/L (25-165) C-Reactive Protein 0.1mg/dL (0.0-0.5) Total Protein 7.4g/dL (6.4-8.4) Albumin 4.7g/dL (3.4-5.0) Procalcitonin 0.03ng/mL (0.00-0.08) Thyroid Stimulating Hormone (TSH) 1.970uIU/mL (0.450-4.500) Discharge Medications Discharge Medications Aspirin (Aspirin) 81 Mg Tablet 81 MG PO DAILY (Reported) Calcium Carbonate (Tums) 500 Mg Tab.chew 500 MG PO DAILY (Reported) Colchicine (Colcrys) 0.6 Mg Tablet 0.6 MG PO DAILY Prescribed by: ENDY MEJIA MD Multivitamin (Multivitamins) 1 Each Capsule 1 EACH PO DAILY (Reported) Nitrofurantoin Macrocrystal (Nitrofurantoin Macrocrystal) 50 Mg Capsule 50 MG PO BID (Reported) Wilton-3 Fatty Acids/Fish Oil (Wilton 3 1,000 mg Softgel) 1 Each Capsule 1 EACH PO DAILY (Reported) Ranitidine (Ranitidine) 150 Mg Capsule 150 MG PO BID (Reported) Trospium Chloride (Trospium Chloride) 20 Mg Tablet 20 MG PO BID ON EMPTY STOMACH (Reported) As needed Melatonin (Melatonin) 1 Mg Tablet 1 MG PO HS PRN PRN For Headache Prescribed by: FRANTZ GLOVER MD Followup Plan Disposition: The patient is being discharged home in the care of her Carlos. He is agreeable with this plan. Discharge Diet: No restrictions (The patient may resume her usual diet gradually as tolerated.) Discharge Activity: No restrictions (The patient may resume her usual activities gradually as tolerated.) Follow-up Provider: Freddy Ch MD Follow-up with PCP in: 1 week Time spent Time spent on discharging this patient was greater than 35 minutes, over half of which was involved in counseling and coordination of care. Isreal Mejia MD Jan 16, 2017 00:07
== END 2017-01-15 15:55 | disposition home or self-care (01) ==
LOC: SED 13:56 → MOC 18:02
PROVIDERS: ADMIT Internal Medicine Infectious Disease; ATTEND Internal Medicine Infectious Disease
DX: M10.061 Idiopathic gout, right knee (principal); G35 Multiple sclerosis; M25.561 Pain in right knee; I10 Essential (primary) hypertension; I83.90 Asymptomatic varicose veins of unspecified lower extremity; Z85.3 Personal history of malignant neoplasm of breast; Z92.3 Personal history of irradiation; Z92.21 Personal history of antineoplastic chemotherapy; Z86.73 Personal history of transient ischemic attack (TIA), and cerebral infarction without residual deficits; Z79.82 Long term (current) use of aspirin
CPT/HCPCS: 36415; 73562; 80053; 81000; 83036; 83735; 84145; 84443; 84550; 85025; 85610; 85651; 86140; 87077; 87086; 87088; 87186; 97162; 99285; C8929; G0378; J1644; J7030